=== PATIENT | female | born 1965 | race African-American/Black ===

== ENCOUNTER 2023-11-11 17:58 | Emergency (ER) | payer BC, MEDICAID ==
[~2023-11-11] VITALS: Ht 172.7 cm; Wt 68.0 kg
[~2023-11-11 17:58] MED LIST: AMLO5TAB4; GLIP10TA3; LOSA-415; METF-415
[2023-11-11 18:11] VITALS: BP 135/63; PULSE 69; RESP 18; TEMP 98.7; O2SAT 99
[2023-11-11] MEDS ORDERED: IBUPROFEN 600MG TABLET PO STA (18:26)
[2023-11-11] MEDS ORDERED: IBUP-2029 MT (19:54)
== END 2023-11-11 21:01 | disposition home or self-care (01) ==
LOC: ER 17:58
DX: R07.89 Other chest pain (principal); R09.81 Nasal congestion; R05.9 Cough, unspecified
CPT/HCPCS: 71045; 93005; 99283